=== PATIENT | female | born 1990 ===

== ENCOUNTER 2018-12-02 15:25 | Emergency (ER) | payer MEDICAID, OTHER ==
[2018-12-02 15:44] VITALS: BMI 23.8
[2018-12-02 15:45] VITALS: RESP 18
--- NOTE | 2018-12-02 15:56 | C.PDOC ---
History Of Present Illness 28 y/o female presents to ED for medical evaluation of left ankle s/p fall yesterday. She reports she was at work when she tripped and fell down a couple of steps. She denies any head injury or LOC but believes she may have twisted her ankle during the fall. She went home and applied warm soaks and otc topical cream for pain relief. She also mentions keeping it elevated but woke up this morning with swelling to the lateral aspect of the ankle. She denies any use of otc pain meds. She currently walks with a limp and states it is difficult to bear weight on the left foot. She denies any paresthesias, headache, dizziness, and weakness. Time Seen by Provider: 12/02/18 15:47 Chief Complaint (Nursing): Lower Extremity Problem/Injury History Per: Patient History/Exam Limitations: no limitations Onset/Duration Of Symptoms: Sudden Onset Current Symptoms Are (Timing): Still Present Severity: Moderate Pain Scale Rating Of: 6 Recent travel outside of the [place]: No - Ankle/Foot Description Of Injury: Twisted Currently Unable To: Bear Weight Alleviating Factor(s): Ice Therapy, Elevation Past Medical History Reviewed: Historical Data, Nursing Documentation, Vital Signs Vital Signs: Last Vital Signs Temp 98.8 F 12/02/18 15:44 Pulse 63 12/02/18 15:44 Resp 18 12/02/18 15:44 BP 110/63 12/02/18 15:44 Pulse Ox 96 12/02/18 15:44 Family History: States: Unknown Family Hx - Social History Hx Alcohol Use: No Hx Substance Use: No - Immunization History Hx Tetanus Toxoid Vaccination: No Hx Influenza Vaccination: No Hx Pneumococcal Vaccination: No Review Of Systems Constitutional: Negative for: Weakness Cardiovascular: Negative for: Chest Pain Respiratory: Negative for: Shortness of Breath Musculoskeletal: Positive for: Foot Pain. Negative for: Leg Pain Skin: Negative for: Bruising Neurological: Negative for: Headache, Dizziness Physical Exam - Physical Exam Appears: Well, Non-toxic, No Acute Distress Skin: Normal Color, Warm, Dry Head: Atraumatic, Normacephalic, No Tenderness Eye(s): bilateral: Normal Inspection Neck: Normal ROM, Supple Chest: Symmetrical Cardiovascular: Rhythm Regular Respiratory: Normal Breath Sounds, No Wheezing Gastrointestinal/Abdominal: Soft, No Tenderness Extremity: Normal ROM, Tenderness (left ankle), No Pedal Edema, No Calf Tenderness, Capillary Refill (less than 2 seconds), Swelling Pulses: Left Dorsalis Pedis: Normal, Right Dorsalis Pedis: Normal Neurological/Psych: Oriented x3, Normal Speech, Normal Cognition, Normal Motor, Normal Sensation Gait: Other (limping) ED Course And Treatment O2 Sat by Pulse Oximetry: 96 - Other Rad left ankle xray X-Ray: Interpreted by Me, Viewed By Me Interpretation: no visible fracture Medical Decision Making Medical Decision Making: A/P: Left Ankle Sprain - Xray negative for fracture - Ibuprofen given - Eduardo bandage and ankle stirrup applied - follow up with PCP or Ortho or return to ED if symptoms persist or worsen - patient verbalized understanding and is in agreement with plan - discharged with Naproxen Disposition Counseled Patient/Family Regarding: Studies Performed, Diagnosis, Need For Followup, Rx Given - Disposition Referrals: Podiatry Clinic [Outside] [facility] [Outside] Disposition: HOME/ ROUTINE Disposition Time: 18:15 Condition: STABLE Additional Instructions: CHIQUI DAVIDSON, thank you for letting us take care of you today. Your provider was Simran Ronquillo MD and you were treated for LT ANKLE PAIN. The emergency medical care you received today was directed at your acute symptoms. If you were prescribed any medication, please fill it and take as directed. It may take several days for your symptoms to resolve. Return to the Emergency Department if your symptoms worsen, do not improve, or if you have any other problems. Please contact your doctor or call one of the physicians/clinics you have been referred to that are listed on the Patient Visit Information form that is included in your discharge packet. Bring any paperwork you were given at discharge with you along with any medications you are taking to your follow up visit. Our treatment cannot replace ongoing medical care by a primary care provider outside of the emergency department. Thank you for allowing the [facility] team to be part of your care today. Prescriptions: Naproxen [Naprosyn] 500 mg PO BID #30 tablet Instructions: Ankle Sprain (DC) Forms: [facility] [facility] (Czech) - Clinical Impression Clinical Impression: Ankle sprain - PA / RAIL ENGINEER / Resident Statement MD/DO has reviewed & agrees with the documentation as recorded.
[2018-12-02 17:19] VITALS: BP 116/76; PULSE 72; TEMP 98.7
[2018-12-02 18:18] VITALS: O2SAT 96
--- NOTE | 2018-12-03 11:19 | RAD ---
PROCEDURE: Left Ankle Radiographs. HISTORY: s/p fall COMPARISON: None available FINDINGS: BONES: No acute displaced fracture. JOINTS: No dislocation. SOFT TISSUES: Marked soft tissue swelling. No evidence of radiopaque foreign body. OTHER FINDINGS: None. IMPRESSION: Marked soft tissue swelling. No acute displaced fracture, dislocation, or significant joint effusion identified. If symptoms persist or if there is clinical concern, x-ray follow-up in 7-10 days should be considered.
== END 2018-12-02 18:48 | disposition home or self-care (01) ==
LOC: C.ER 15:25
DX: S93.402A Sprain of unspecified ligament of left ankle, initial encounter (principal); W10.9XXA Fall (on) (from) unspecified stairs and steps, initial encounter; Y92.89 Other specified places as the place of occurrence of the external cause; Y99.0 Civilian activity done for income or pay

== ENCOUNTER 2019-02-26 17:14 | Emergency (ER) | payer MEDICAID ==
[2019-02-26 17:15] VITALS: BMI 23.8
[2019-02-26 17:21] VITALS: RESP 18; O2SAT 100
--- NOTE | 2019-02-26 17:45 | C.PDOC ---
History Of Present Illness 29 y/o female presents to ED complaining of urinary frequency, looks cloudy since earlier today. This afternoon she states she had slight discomfort in pelvic area. She denies any bleeding. Last menstrual period was 02/15/19. Also denies fever, nausea, or vomiting. Time Seen by Provider: 02/26/19 17:21 Chief Complaint (Nursing): Female Genitourinary History Per: Patient History/Exam Limitations: no limitations Onset/Duration Of Symptoms: Hrs Current Symptoms Are (Timing): Still Present Past Medical History Reviewed: Historical Data, Nursing Documentation, Vital Signs Vital Signs: Last Vital Signs Temp 98.7 F 02/26/19 17:16 Pulse 68 02/26/19 17:16 Resp 18 02/26/19 17:16 BP 109/68 02/26/19 17:16 Pulse Ox 100 02/26/19 17:16 Primary Care Provider: FAMILY PROVIDER,NO Family History: States: No Known Family Hx - Social History Hx Alcohol Use: Yes Hx Substance Use: No - Immunization History Hx Tetanus Toxoid Vaccination: No Hx Influenza Vaccination: No Hx Pneumococcal Vaccination: No Review Of Systems Constitutional: Negative for: Fever, Chills Gastrointestinal: Negative for: Nausea, Vomiting, Abdominal Pain Genitourinary: Positive for: Frequency, Pelvic Pain. Negative for: Hematuria, Vaginal Bleeding Musculoskeletal: Negative for: Back Pain Physical Exam - Physical Exam Appears: Non-toxic, No Acute Distress Skin: Warm, Dry Head: Normacephalic Eye(s): bilateral: Normal Inspection Oral Mucosa: Moist Neck: Supple Cardiovascular: Rhythm Regular, No Murmur Respiratory: Normal Breath Sounds, No Rales, No Rhonchi, No Wheezing Gastrointestinal/Abdominal: Soft, No Tenderness Back: No CVA Tenderness Extremity: Bilateral: Atraumatic, Normal ROM Neurological/Psych: Oriented x3, Normal Speech ED Course And Treatment O2 Sat by Pulse Oximetry: 100 (RA) Pulse Ox Interpretation: Normal Medical Decision Making Medical Decision Making: Plan: --Urine HCG --Urinalysis Urine reviewed and shows trace LE, no WBC nitrates or other abnormality Will send urine culture and contact if results positive discuss with patient and ask further regarding any pelvic pain or discharge, she denies and does not want pelvic at this time. 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 - Scribe Statement The provider has reviewed the documentation as recorded by the Scribe Deja Ordoñez All medical record entries made by the Heatheriblinda were at my direction and personally dictated by me. I have reviewed the chart and agree that the record accurately reflects my personal performance of the history, physical exam, medical decision making, and the department course for this patient. I have also personally directed, reviewed, and agree with the discharge instructions and disposition.
[2019-02-26 17:48] LABS: SQUAMOUS EPITHIAL 4 /hpf (0-5); URINE BACTERIA RARE (<OCC); URINE BILIRUBIN NEGATIVE (NEGATIVE); URINE BLOOD NEGATIVE (NEGATIVE); URINE CLARITY Hazy (Clear); URINE COLOR Yellow (YELLOW); URINE GLUCOSE (UA) NORMAL (Normal); URINE LEUKOCYTE ESTERASE TRACE Leu/uL (Negative); URINE PROTEIN NEGATIVE (NEGATIVE); URINE UROBILINOGEN NORMAL mg/dL (0.2-1.0)
[2019-02-26 17:49] LABS: HCG,QUALITATIVE URINE NEGATIVE (NEGATIVE)
[2019-02-26 18:29] VITALS: BP 114/54; PULSE 63; TEMP 98.6
== END 2019-02-26 18:10 | disposition home or self-care (01) ==
LOC: C.ER 17:14
DX: R35.0 Frequency of micturition (principal)